=== PATIENT | female | born 1990 | race Caucasian/White ===

== ENCOUNTER 2016-12-24 12:29 | Emergency (ER) | payer OTHER ==
[~2016-12-24] VITALS: Ht 157.5 cm; Wt 41.7 kg
[2016-12-24 12:36] VITALS: BP 101/58
--- NOTE | 2016-12-24 15:17 | NUR ---
PATIENT PRESENTS TO ED WITH C/O DIZZINESS X 6 DAYS. PT STATES NO TRAUMA OR INJURY TO HEAD AT THIS TIME. DENIES ANY MEDICAL HX; DENIES N/V/D; SKIN IS PINK/WARM/DRY; AAOX4 WITH EVEN AND STEADY GAIT; LUNGS CLEAR BL; HR EVEN AND REGULAR; PT DENIES ANY FEVER, CP, SOB, OR COUGH AT THIS TIME; PATIENT STATES PAIN OF 6/10 BODY ACHE AT THIS TIME;PATIENT POSITIONED FOR COMFORT; HOB ELEVATED; BEDRAILS UP X2; BED DOWN. ER MD MADE AWARE OF PT STATUS.
--- NOTE | 2016-12-24 15:36 | NUR ---
Female Barley Steeper LENNIE Lam RN accompanied female patient for Pelvic Exam for md Reinoso.
--- NOTE | 2016-12-24 16:10 | NUR ---
SPECIMEN FOR HSV CULTURE COLLECTED BY SHEILA HART.
[2016-12-24 16:13] LABS: BASOPHILS # (AUTO) 0.1 K/uL (0.00-0.22); BASOPHILS % (AUTO) 1.6 % (0.0-2.0); HEMATOCRIT 38.1 % (36-48); HEMOGLOBIN 12.5 g/dL (12.0-16.0); LYMPHOCYTES # (AUTO) 0.5 K/uL (2.5-16.5); LYMPHOCYTES % (AUTO) 11.5 % (20.5-51.1); MEAN CORPUSCULAR HEMOGLOBIN 29 pg (27-31); MEAN CORPUSCULAR HGB CONC 33 g/dL (33-37); MEAN CORPUSCULAR VOLUME 90 fL (80-94); MONOCYTES # (AUTO) 0.4 K/uL (0.8-1.0); MONOCYTES % (AUTO) 8.9 % (1.7-9.3); NEUTROPHILS # (AUTO) 3.5 K/uL (1.8-7.7); PLATELET COUNT (AUTO) 162 K/uL (140-450); RED BLOOD CELL COUNT(AUTO) 4.25 MIL/uL (4.20-5.40); RED CELL DISTRIBUTION WIDTH 12.4 % (11.6-13.7); WHITE BLOOD COUNT (AUTO) 4.5 K/uL (4.8-10.8)
--- NOTE | 2016-12-24 16:37 | NUR ---
PT WAS SENT TO THE LOBBY BY SHEILA HART;PT JUST WAITING FOR WET MOUNT RESULT;BED WAS NEEDED BY A MORE SICK PT.
--- NOTE | 2016-12-24 17:50 | NUR ---
Ernesto haro in [facility] - 12/24/16 at 1759 by DIAZ PT BACK FROM US VIA WHEELCHAIR
--- NOTE | 2016-12-24 17:59 | NUR ---
PT WITH NO COMPLAINTS; NAD; RR ARE EVEN AND UNLABORED; AMBULATORY WITH STEADY GAIT
--- NOTE | 2016-12-24 18:00 | NUR ---
Patient discharged with v/s stable. Written and verbal after care instructions given and explained. Patient verbalized understanding. Ambulatory with steady gait. All questions addressed prior to discharge. Advised to follow up with PMD.
[2016-12-24 18:05] VITALS: BP 101/59
[2016-12-26 08:33] LABS: CHLAMYDIA TRACHOMATIS AMP DNA Negative (Negative)
== END 2016-12-24 18:00 | disposition home or self-care (01) ==
LOC: MED 12:29
DX: N94.19 Other specified dyspareunia (principal); R51 Headache; R42 Dizziness and giddiness
CPT/HCPCS: 36415; 85025; 87210; 87491; 87529; 99284